=== PATIENT | male | born 1995 | race Caucasian/White ===

== ENCOUNTER 2016-08-23 17:09 | Emergency (ER) | payer OTHER ==
[~2016-08-23] VITALS: Ht 177.8 cm; Wt 90.7 kg
[2016-08-23] MEDS ORDERED: MORPHINE 4 MG/ML 1ML SYRINGE IV ONE (17:30)
[2016-08-23] MEDS ORDERED: KETOROLAC 30 MG/ML VIAL (J1885) IV ONE (17:30)
[2016-08-23] MEDS ORDERED: ONDANSETRON 4MG/2ML VIAL (J2405) IV ONE (17:30)
[2016-08-23] MEDS ORDERED: IBUP80TA PO (17:37)
[2016-08-23] MEDS ORDERED: PERCOCET 5MG/325MG TAB PO ONE (17:45)
--- NOTE | 2016-08-23 17:51 | REP ---
Clinical: Trauma . Technique: Internal rotation, external rotation, and Y view. Findings: No acute fracture or dislocation. Acromioclavicular joint separation cannot be excluded and should be correlated with mechanism of injury and physical examination. No periarticular calcifications or degenerative changes are appreciated. Sub acromial space is normal. Surrounding soft tissues are unremarkable. Impression: Cannot exclude acromioclavicular joint separation. No acute fracture. Signed by Wilfredo López MD 08/23/2016 05:42 P
[2016-08-23 18:19] VITALS: BP 134/71
== END 2016-08-23 18:17 | disposition home or self-care (01) ==
LOC: M ED 17:55
DX: S49.91XA Unspecified injury of right shoulder and upper arm, initial encounter (principal); W10.9XXA Fall (on) (from) unspecified stairs and steps, initial encounter; Y92.019 Unspecified place in single-family (private) house as the place of occurrence of the external cause; Y93.01 Activity, walking, marching and hiking; Y99.8 Other external cause status

== ENCOUNTER 2018-05-05 11:55 | Emergency (ER) | payer OTHER ==
[~2018-05-05] VITALS: Ht 177.8 cm; Wt 95.5 kg
[~2018-05-05 11:55] MED LIST: IBUP80TA PO
[2018-05-05 11:56] VITALS: BP 131/79
--- NOTE | 2018-05-05 12:38 | REP ---
Right hand series: Four views. History: Trauma. Findings: Four views right hand show overall normal mineralization. There is no evidence of fracture or subluxation. Impression: Negative right hand radiographs. Electronically Signed by Wyatt Humphries MD 05/05/2018 12:30 P
== END 2018-05-05 15:28 | disposition home or self-care (01) ==
LOC: M ED 11:55
DX: S63.501A Unspecified sprain of right wrist, initial encounter (principal); X58.XXXA Exposure to other specified factors, initial encounter; Y92.098 Other place in other non-institutional residence as the place of occurrence of the external cause